=== PATIENT | female | born 1975 | race Caucasian/White ===

== ENCOUNTER 2018-09-19 20:32 | Emergency (ER) | payer OTHER ==
[~2018-09-19] VITALS: Ht 165.1 cm; Wt 56.7 kg
--- NOTE | 2018-09-19 20:57 | NUR ---
DR. HENNING AT BEDSIDE FOR MSE.
[2018-09-19] MEDS ORDERED: CEFTRIAXONE 1 G VIAL IM ONE (21:00)
[2018-09-19] MEDS ORDERED: SULFAMETH/TRIMETH 800/160 MG TABLET PO ONE (21:00)
[2018-09-19] MEDS ORDERED: SODIUM BICARBONATE 4.2 % (NEUT) 5 ML VIAL TP ONE (21:00)
[2018-09-19] MEDS ORDERED: LIDOCAINE HCL 2% 20 ML VIAL TP ONE (21:00)
[2018-09-19] MEDS ORDERED: LIDOCAINE HCL 1% 20 ML VIAL ONE (21:07)
[2018-09-19] MEDS ORDERED: SULFAMETH/TRIMETH 800/160 MG TABLET ONE (21:07)
[2018-09-19] MEDS ORDERED: CEFTRIAXONE 1 G VIAL ONE (21:07)
--- NOTE | 2018-09-19 21:45 | NUR ---
PATIENT HAD A SYNCOPAL EPISODE. DR. HENNING AT BEDSIDE. VSS
--- NOTE | 2018-09-19 22:30 | NUR ---
PATIENT STATES SHE FEELS A LOT BETTER. DR. HENNING AT BEDSIDE.
[2018-09-19 22:44] VITALS: BP 105/74
--- NOTE | 2018-09-19 22:44 | NUR ---
Patient discharged to home in stable conditon. Written and verbal after care instructions given. Patient verbalizes understanding of instructions. PATIENT LEFT WITH STABLE GAIT.
== END 2018-09-19 22:45 | disposition home or self-care (01) ==
LOC: ER 20:32
DX: L03.011 Cellulitis of right finger (principal); R55 Syncope and collapse
CPT/HCPCS: 10060; 96372; 99283; J0696; J3490 ×2; A4663

== ENCOUNTER 2018-10-29 19:02 | Emergency (ER) | payer OTHER ==
[~2018-10-29] VITALS: Ht 165.1 cm; Wt 56.7 kg
--- NOTE | 2018-10-29 19:48 | NUR ---
Patient ambulated using crutches with stable gait.. AAOx4. Speech is clear, speaks in complete sentences. No neuro deficits. Patient came in with c/o LLE pain in ankle s/p tripping accident 10/28/18 at 1730. No respiratory distress noted, no sob no cough. No cardiovascular distress, all pulses palpable. No GI/ distress. Patient in bed at lowest position, side rails up x2, call light within reach. Fall precautions implemented per protocol.
--- NOTE | 2018-10-29 20:00 | NUR ---
Female application programmer analyst, Peggy, accompanied female patient for pelvic/rectal exam.
--- NOTE | 2018-10-29 21:17 | NUR ---
Patient in bed at lowest position. NAD
--- NOTE | 2018-10-29 22:05 | NUR ---
Patient discharged to home in stable conditon. Written and verbal after care instructions given. Patient verbalizes understanding of instructions. Patient ambulated using crutches with stable gait.
--- NOTE | 2018-10-29 22:05 | NUR ---
Posterior short leg cast applied to LLE. CMS intact.
[2018-10-29 22:10] VITALS: BP 135/79
== END 2018-10-29 22:10 | disposition home or self-care (01) ==
LOC: ER 19:03
DX: L03.012 Cellulitis of left finger (principal); M79.672 Pain in left foot; L73.9 Follicular disorder, unspecified; X50.0XXA Overexertion from strenuous movement or load, initial encounter; Y93.89 Activity, other specified; Y92.89 Other specified places as the place of occurrence of the external cause; Y99.8 Other external cause status
CPT/HCPCS: 73630; 87081; 87110; 87210; A4663

== ENCOUNTER 2018-11-18 15:28 | Emergency (ER) | payer OTHER ==
[~2018-11-18] VITALS: Ht 165.1 cm; Wt 56.7 kg
--- NOTE | 2018-11-18 15:57 | NUR ---
PT A/OX4, PRESENTS TO THE ER C/O BILATERAL FLANK PAIN AND HEADACHE X 1 WEEK. PAIN IS NON-PROVOKED, ACHING IN QUALITY, DOES NOT RADIATE, 3/10, CONSTANT. PT PRESENTS AN UNLABELED MEDICATION BOTTLE CONTAINING WHITE POWDER AND STATES "IT'S ALLEDGELY MAGNESIUM" AND STATES HER FRIEND GAVE IT TO HER TO TAKE. PT REPORTS ONSET OF BILATERAL FLANK PAIN SINCE STARTING SELF-ADMINISTRATION OF THE WHITE POWDER. VSS. PT DENIES C/P, SOB, N/V/D, DIZZINESS.
[2018-11-18 16:10] LABS: *BILIRUBIN,URIN NEGATIVE (NEGATIVE); *CLARITY,URINE CLEAR (CLEAR); *COLOR,URINE LIGHT YELLOW (YELLOW); *KETONES,URINE NEGATIVE (NEGATIVE); *UROBILINOGEN,URINE 0.2 E.U./dl (NORMAL); NITRITE, URINE NEGATIVE (NEGATIVE); PH,URINE 7.5 (5.0-8.0); UGLUCOSE NEGATIVE (NEGATIVE)
[2018-11-18 16:11] LABS: *URINE HCG, QUAL NEGATIVE (NEGATIVE)
[2018-11-18] MEDS ORDERED: IV NORMAL SALINE 1000 ML BAG IV ONE (16:15)
[2018-11-18 16:17] LABS: *BLOOD, URINE TRACE (NEGATIVE)
[2018-11-18 16:18] LABS: LEUKOCYTE ESTERASE ,URINE NEGATIVE (NEGATIVE)
[2018-11-18 16:19] LABS: RBC,URINE 0-3 /HPF (0-3); SQUAMOUS EPITHELIAL CELL,UR FEW /HPF (NONE SEEN); WBC,URINE 0-3 /HPF (0-3)
[2018-11-18 16:23] LABS: BASOPHILS # (AUTO) 0.1 K/uL (0.0-8.0); BASOPHILS % (AUTO) 1.4 % (0.0-2.0); EOSINOPHILS # (AUTO) 0.1 K/uL (0.0-0.7); EOSINOPHILS % (AUTO) 2.6 % (0.0-7.0); HEMATOCRIT 34.6 % (31.2-41.9); HEMOGLOBIN 11.2 g/dL (10.9-14.3); LYMPHOCYTES # (AUTO) 1.7 K/uL (20.0-40.0); LYMPHOCYTES % (AUTO) 33.6 % (20.5-51.5); MEAN CORPUSCULAR HEMOGLOBIN 26.6 uug (24.7-32.8); MEAN CORPUSCULAR HGB CONC 32 g/dL (32.3-35.6); MEAN CORPUSCULAR VOLUME 82.3 fL (75.5-95.3); MONOCYTES # (AUTO) 0.4 K/uL (2.0-10.0); MONOCYTES % (AUTO) 7.9 % (0.0-11.0); NEUTROPHILS # (AUTO) 2.8 K/uL (1.8-8.9); NEUTROPHILS % (AUTO) 54.5 % (38.5-71.5); PLATELET COUNT (AUTO) 296 K/uL (179-408); WHITE BLOOD COUNT (AUTO) 5.1 K/uL (3.8-11.8)
[2018-11-18 16:29] LABS: *AMPHETAMINE, URINE NEGATIVE (NEGATIVE); *BARBITURATE, URINE NEGATIVE (NEGATIVE); *CANNABINOID, URINE NEGATIVE (NEGATIVE); *COCCAINE, URINE NEGATIVE (NEGATIVE); *OPIATE, URINE NEGATIVE (NEGATIVE); *PHENCYCLIDINE SCREEN,URINE NEGATIVE (NEGATIVE)
[2018-11-18 16:33] LABS: CREATININE 0.8 mg/dL (0.6-1.3); POTASSIUM 4.1 mmol/L (3.5-5.1)
[2018-11-18 16:38] LABS: BILIRUBIN,DIRECT 0.1 mg/dL (0.0-0.2); BILIRUBIN,TOTAL 0.1 mg/dL (0.2-1.0); TOTAL PROTEIN, SERUM 7.4 g/dL (6.4-8.2)
--- NOTE | 2018-11-18 17:14 | NUR ---
BRIDGER CARDENAS AT BEDSIDE FOR PT UPDATE.
--- NOTE | 2018-11-18 18:12 | NUR ---
Patient discharged to home in stable conditon. Written and verbal after care instructions given. Patient verbalizes understanding of instructions. ALL BELONGINGS W/ PT. PT SELF-AMBULATED W/O DIFFICULTY. 20G IV ACCESS IN LAC REMOVED PRIOR TO D/C - INNER CANNULA INTACT.
[2018-11-18 18:13] VITALS: BP 116/72
== END 2018-11-18 18:13 | disposition home or self-care (01) ==
LOC: ER 15:31
DX: Z00.00 Encounter for general adult medical examination without abnormal findings (principal); R10.9 Unspecified abdominal pain; R60.9 Edema, unspecified
CPT/HCPCS: 36415; 80307; 83690; 84703; 85025; A4663; J7030

== ENCOUNTER 2018-11-23 12:45 | Emergency (ER) | payer OTHER ==
[~2018-11-23] VITALS: Ht 165.1 cm; Wt 56.7 kg
--- NOTE | 2018-11-23 13:05 | NUR ---
BRIDGER CARDENAS AT BEDSIDE FOR MSE.
[2018-11-23] MEDS ORDERED: IV NORMAL SALINE 1000 ML BAG IV ONE (13:15)
--- NOTE | 2018-11-23 13:49 | NUR ---
Patient discharged to home in stable conditon. Written and verbal after care instructions given. Patient verbalizes understanding of instructions. PT D/C W/ PRESCRIPTION. ALL BELONGINGS W/ PT. PT SELF-AMBULATED W/O DIFFICULTY. 18G IV ACCESS IN L FOREARM REMOVED PRIOR TO D/C - INNER CANNULA INTACT.
[2018-11-23 13:50] VITALS: BP 114/63
== END 2018-11-23 13:51 | disposition home or self-care (01) ==
LOC: ER 12:45
DX: L01.00 Impetigo, unspecified (principal)
CPT/HCPCS: A4663; J7030

== ENCOUNTER 2018-12-12 21:42 | Emergency (ER) | payer OTHER ==
[~2018-12-12] VITALS: Ht 165.1 cm; Wt 54.4 kg
--- NOTE | 2018-12-12 22:18 | NUR ---
Patient discharged to home in stable conditon. Written and verbal after care instructions given. Patient verbalizes understanding of instructions. Ambulated from ER with stable gait. Patient refused to wait for d/c paperwork, perscription, and AVS. Refused to sign d/c paperwork
[2018-12-12 22:19] VITALS: BP 128/81
== END 2018-12-12 22:20 | disposition home or self-care (01) ==
LOC: ER 21:44
DX: L03.011 Cellulitis of right finger (principal); L60.1 Onycholysis
CPT/HCPCS: A4663

== ENCOUNTER 2018-12-17 20:09 | Emergency (ER) | payer OTHER ==
[~2018-12-17] VITALS: Ht 165.1 cm; Wt 54.4 kg
--- NOTE | 2018-12-17 21:27 | NUR ---
Patient eloped from facility. ER physician notified.
== END 2018-12-17 21:29 | disposition left against medical advice (07) ==
LOC: ER 20:10
DX: L03.011 Cellulitis of right finger (principal); L60.1 Onycholysis
CPT/HCPCS: A4663

== ENCOUNTER 2019-02-16 07:04 | Emergency (ER) | payer OTHER ==
[~2019-02-16] VITALS: Ht 165.1 cm; Wt 56.7 kg
--- NOTE | 2019-02-16 08:51 | NUR ---
Patient discharged to home in stable conditon. Written and verbal after care instructions given. Patient verbalizes understanding of instructions.
[2019-02-16 08:52] VITALS: BP 114/70
== END 2019-02-16 08:53 | disposition home or self-care (01) ==
LOC: ER 07:05
DX: J32.9 Chronic sinusitis, unspecified (principal)
CPT/HCPCS: 71045; A4663

== ENCOUNTER 2019-05-16 13:30 | Emergency (ER) | payer OTHER ==
[~2019-05-16] VITALS: Ht 165.1 cm; Wt 56.7 kg
--- NOTE | 2019-05-16 13:54 | NUR ---
PT IS IN ROOM #2A. DR LANCE EVALUATED THE PT.
[2019-05-16] MEDS ORDERED: IV NORMAL SALINE 1000 ML BAG IV ONE (14:00)
[2019-05-16 14:24] LABS: *BILIRUBIN,URIN NEGATIVE (NEGATIVE); *CLARITY,URINE CLEAR (CLEAR); *COLOR,URINE YELLOW (YELLOW); *KETONES,URINE NEGATIVE (NEGATIVE); *UROBILINOGEN,URINE 0.2 E.U./dl (NORMAL); LEUKOCYTE ESTERASE ,URINE NEGATIVE (NEGATIVE); NITRITE, URINE NEGATIVE (NEGATIVE); PH,URINE 5.5 (5.0-8.0); UGLUCOSE NEGATIVE (NEGATIVE)
[2019-05-16 14:27] LABS: BASOPHILS # (AUTO) 0.1 K/uL (0.0-8.0); BASOPHILS % (AUTO) 2.3 % (0.0-2.0); EOSINOPHILS # (AUTO) 0.1 K/uL (0.0-0.7); EOSINOPHILS % (AUTO) 1.4 % (0.0-7.0); HEMATOCRIT 36.1 % (31.2-41.9); HEMOGLOBIN 11.8 g/dL (10.9-14.3); LYMPHOCYTES # (AUTO) 1.6 K/uL (20.0-40.0); LYMPHOCYTES % (AUTO) 35.1 % (20.5-51.5); MEAN CORPUSCULAR HEMOGLOBIN 27.9 uug (24.7-32.8); MEAN CORPUSCULAR HGB CONC 33 g/dL (32.3-35.6); MEAN CORPUSCULAR VOLUME 85.2 fL (75.5-95.3); MONOCYTES # (AUTO) 0.2 K/uL (2.0-10.0); MONOCYTES % (AUTO) 5.6 % (0.0-11.0); NEUTROPHILS # (AUTO) 2.5 K/uL (1.8-8.9); NEUTROPHILS % (AUTO) 55.6 % (38.5-71.5); PLATELET COUNT (AUTO) 276 K/uL (179-408); RED BLOOD CELL COUNT(AUTO) 4.23 MIL/uL (3.63-4.92); WHITE BLOOD COUNT (AUTO) 4.4 K/uL (3.8-11.8)
[2019-05-16 14:40] LABS: *BLOOD, URINE TRACE (NEGATIVE)
[2019-05-16 14:40] LABS: ALANINE AMINOTRANSFERASE 8 U/L (14-59); ALKALINE PHOSPHATASE 58 U/L (50-136); ASPARTATE AMINOTRANSFERASE 15 U/L (15-37); BILIRUBIN,DIRECT 0.1 mg/dL (0.0-0.2); BILIRUBIN,TOTAL 0.3 mg/dL (0.2-1.0); CARBON DIOXIDE 26 mmol/L (21-32); CHLORIDE 106 mmol/L (98-107); CREATININE 0.8 mg/dL (0.6-1.3); GLUCOSE 91 mg/dL (74-106); LIPASE 152 U/L (73-393); POTASSIUM 3.8 mmol/L (3.5-5.1); TOTAL PROTEIN, SERUM 7.2 g/dL (6.4-8.2); UREA NITROGEN, BLOOD 15 mg/dL (7-18)
[2019-05-16 14:41] LABS: MUCUS,URINE FEW /LPF (0-FEW); SQUAMOUS EPITHELIAL CELL,UR FEW /HPF (NONE SEEN); WBC,URINE 0-3 /HPF (0-3)
[2019-05-16 14:43] LABS: ACETAMINOPHEN < 2.0 ug/mL (10-30)
[2019-05-16 15:01] LABS: ETHANOL < 3 MG/DL (0-0)
--- NOTE | 2019-05-16 15:54 | NUR ---
pt was d/c'd to home. d/c instructions given to the pt.
[2019-05-16 15:57] VITALS: BP 132/77
== END 2019-05-16 15:57 | disposition home or self-care (01) ==
LOC: ER 13:31
DX: R31.29 Other microscopic hematuria (principal); R51 Headache; R11.0 Nausea; F41.9 Anxiety disorder, unspecified; F32.9 Major depressive disorder, single episode, unspecified
CPT/HCPCS: 36415; 80048; 80076; 81000; 81001; 83690; 84702; 85025; 87086; 99283; G0480 ×2; G0481; A4663; J7030

== ENCOUNTER 2019-06-24 21:13 | Emergency (ER) | payer OTHER ==
[~2019-06-24] VITALS: Ht 165.1 cm; Wt 56.7 kg
--- NOTE | 2019-06-24 21:47 | NUR ---
Pt arrived at the ER with chief compalint of allergic reaction, c/o itchy rash all over the body x 2 hours, states she ate dinner with shellfish 30 min prior to allergic reaction, took benadryl otc @1999. Patient AAOX4. In no acute distress.
--- NOTE | 2019-06-24 21:48 | NUR ---
Dr. Archer on bedside for MSE.
[2019-06-24] MEDS ORDERED: methylPREDNISolone SOD SUCC 125 MG/2 ML VIAL ONE (21:58)
[2019-06-24] MEDS ORDERED: methylPREDNISolone SOD SUCC 125 MG/2 ML VIAL IV ONE (22:00)
--- NOTE | 2019-06-24 22:20 | NUR ---
Patient discharged to home in stable conditon. Written and verbal after care instructions given. Patient verbalizes understanding of instructions. Pt ambulated out of the ER with steady gait. All belongings with pt.
[2019-06-24 22:23] VITALS: BP 117/88
== END 2019-06-24 22:20 | disposition home or self-care (01) ==
LOC: ER 21:15
DX: T78.3XXA Angioneurotic edema, initial encounter (principal); L50.0 Allergic urticaria; F41.9 Anxiety disorder, unspecified; Z87.891 Personal history of nicotine dependence
CPT/HCPCS: 96374; 99283; J2930; A4663

== ENCOUNTER 2019-08-10 22:09 | Emergency (ER) | payer OTHER ==
[~2019-08-10] VITALS: Ht 165.1 cm; Wt 56.7 kg
[2019-08-10 23:26] LABS: *BILIRUBIN,URIN NEGATIVE (NEGATIVE); *BLOOD, URINE NEGATIVE (NEGATIVE); *CLARITY,URINE CLEAR (CLEAR); *COLOR,URINE YELLOW (YELLOW); *KETONES,URINE NEGATIVE (NEGATIVE); *UROBILINOGEN,URINE 0.2 E.U./dl (NORMAL); LEUKOCYTE ESTERASE ,URINE NEGATIVE (NEGATIVE); NITRITE, URINE NEGATIVE (NEGATIVE); UGLUCOSE NEGATIVE (NEGATIVE)
[2019-08-10 23:27] LABS: *URINE HCG, QUAL NEGATIVE (NEGATIVE)
--- NOTE | 2019-08-10 23:39 | NUR ---
Patient discharged to home in stable conditon. Written and verbal after care instructions given. Patient verbalizes understanding of instructions. Patient ambulating with steady gait
[2019-08-10 23:40] VITALS: BP 133/55
== END 2019-08-10 23:39 | disposition home or self-care (01) ==
LOC: ER 22:10
DX: R10.9 Unspecified abdominal pain (principal); F41.9 Anxiety disorder, unspecified; Z87.891 Personal history of nicotine dependence
CPT/HCPCS: 84703; A4663

== ENCOUNTER 2019-08-30 17:35 | Emergency (ER) | payer OTHER ==
[~2019-08-30] VITALS: Ht 165.1 cm; Wt 56.7 kg
[2019-08-30] MEDS ORDERED: VENL75TA4 PO (17:48)
[2019-08-30] MEDS ORDERED: VENL37.55 PO (17:48)
--- NOTE | 2019-08-30 18:04 | NUR ---
Patient discharged to home in stable conditon with brisk steady gait. Written and verbal after care instructions given. Patient verbalizes understanding of instructions.
== END 2019-08-30 18:05 | disposition home or self-care (01) ==
LOC: ER 17:35
DX: B00.2 Herpesviral gingivostomatitis and pharyngotonsillitis (principal); F41.9 Anxiety disorder, unspecified; Z87.891 Personal history of nicotine dependence; Z79.899 Other long term (current) drug therapy
CPT/HCPCS: A4663

== ENCOUNTER 2020-04-19 19:38 | Emergency (ER) | payer OTHER ==
[~2020-04-19] VITALS: Ht 165.1 cm; Wt 63.5 kg
[~2020-04-19 19:38] MED LIST: VENL37.55 PO; VENL75TA4 PO
[2020-04-19] MEDS ORDERED: ASPI-1165 PO (19:48)
--- NOTE | 2020-04-19 19:56 | NUR ---
PT IS IN ROOM #1B. DR HENNING EVALUATED THE PT.
--- NOTE | 2020-04-19 20:30 | NUR ---
PATIENT LEFT AFTER BEEN SEEN BY DOCTOR HENNING , REFUSES ANY OTHER TREATMENT , RISK FACTORS EXPLAINED , NO BLOOD WORK DONE , AND VERBALIZES UNDERSTANDING
[2020-04-19 22:47] VITALS: BP 137/94
== END 2020-04-19 20:00 | disposition home or self-care (01) ==
LOC: ER 19:38
DX: Z13.88 Encounter for screening for disorder due to exposure to contaminants (principal); F41.9 Anxiety disorder, unspecified; Z79.899 Other long term (current) drug therapy; Z79.82 Long term (current) use of aspirin; F17.201 Nicotine dependence, unspecified, in remission; R03.0 Elevated blood-pressure reading, without diagnosis of hypertension
CPT/HCPCS: A4663

== ENCOUNTER 2020-08-24 20:05 | Emergency (ER) | payer OTHER ==
[~2020-08-24] VITALS: Ht 165.1 cm; Wt 56.7 kg
[~2020-08-24 20:05] MED LIST changes: +ASPI-1165 PO
[2020-08-24 21:11] LABS: BASOPHILS # (AUTO) 0.1 K/uL (0.0-8.0); BASOPHILS % (AUTO) 1.5 % (0.0-2.0); EOSINOPHILS # (AUTO) 0.1 K/uL (0.0-0.7); EOSINOPHILS % (AUTO) 2.1 % (0.0-7.0); HEMATOCRIT 37.5 % (31.2-41.9); HEMOGLOBIN 12.5 g/dL (10.9-14.3); LYMPHOCYTES # (AUTO) 1.6 K/uL (20.0-40.0); LYMPHOCYTES % (AUTO) 29.2 % (20.5-51.5); MEAN CORPUSCULAR HEMOGLOBIN 27.6 uug (24.7-32.8); MEAN CORPUSCULAR HGB CONC 33 g/dL (32.3-35.6); MONOCYTES # (AUTO) 0.4 K/uL (2.0-10.0); MONOCYTES % (AUTO) 6.9 % (0.0-11.0); NEUTROPHILS # (AUTO) 3.4 K/uL (1.8-8.9); NEUTROPHILS % (AUTO) 60.3 % (38.5-71.5); PLATELET COUNT (AUTO) 292 K/uL (179-408); RED BLOOD CELL COUNT(AUTO) 4.51 MIL/uL (3.63-4.92); WHITE BLOOD COUNT (AUTO) 5.6 K/uL (3.8-11.8)
--- NOTE | 2020-08-24 21:12 | NUR ---
LABS DRAWN/SENT, COVID SPECIM ,/URINE SENT, CXR DONE.
[2020-08-24 21:15] LABS: *BILIRUBIN,URIN NEGATIVE (NEGATIVE); *BLOOD, URINE NEGATIVE (NEGATIVE); *CLARITY,URINE CLEAR (CLEAR); *COLOR,URINE PINK (YELLOW); *KETONES,URINE 1+ (NEGATIVE); *UROBILINOGEN,URINE 0.2 E.U./dl (NORMAL); LEUKOCYTE ESTERASE ,URINE NEGATIVE (NEGATIVE); NITRITE, URINE NEGATIVE (NEGATIVE); PH,URINE 5.5 (5.0-8.0); UGLUCOSE NEGATIVE (NEGATIVE)
[2020-08-24 21:20] LABS: CREATININE 0.9 mg/dL (0.6-1.3); POTASSIUM 3.9 mmol/L (3.5-5.1)
[2020-08-24] MEDS ORDERED: CIPROFLOXACIN HCL 250 MG TABLET PO ONE (21:45)
--- NOTE | 2020-08-24 21:53 | NUR ---
MEDICATION ADMINISTERED, PT D/C'D HOME WITH ACI/RX 1, COPIES OF ALL TESTS. PT AMBULATED W/O DIFF/TOOK ALL BELONGINGS.
[2020-08-24 21:55] VITALS: BP 115/72
[2020-08-24] MEDS ORDERED: CIPROFLOXACIN HCL 250 MG TABLET ONE (21:56)
== END 2020-08-24 21:55 | disposition home or self-care (01) ==
LOC: ER 20:08
DX: K52.9 Noninfective gastroenteritis and colitis, unspecified (principal); R50.9 Fever, unspecified; R09.81 Nasal congestion; R05 Cough; Z20.828 Contact with and (suspected) exposure to other viral communicable diseases; F41.9 Anxiety disorder, unspecified; F32.9 Major depressive disorder, single episode, unspecified; Z79.899 Other long term (current) drug therapy
CPT/HCPCS: 36415; 71045; 85025; A4663

== ENCOUNTER 2020-11-04 07:01 | Emergency (ER) | payer OTHER ==
[~2020-11-04] VITALS: Ht 165.1 cm; Wt 56.7 kg
--- NOTE | 2020-11-04 07:25 | NUR ---
Dr Workman at the bedside for MSE.
[2020-11-04] MEDS ORDERED: ONDANSETRON ODT 4 MG TAB.RAPDIS ONE ×2 (07:44→07:53)
[2020-11-04] MEDS ORDERED: AZITHROMYCIN 250 MG TABLET PO ONE (07:45)
[2020-11-04] MEDS ORDERED: ONDANSETRON ODT 4 MG TAB.RAPDIS SL ONE (07:45)
[2020-11-04] MEDS ORDERED: CEFTRIAXONE 500 MG VIAL IM ONE (07:45)
[2020-11-04] MEDS ORDERED: LIDOCAINE HCL 1% 20 ML VIAL ONE (07:52)
[2020-11-04] MEDS ORDERED: AZITHROMYCIN 250 MG TABLET ONE (07:52)
[2020-11-04 07:53] LABS: *BILIRUBIN,URIN NEGATIVE (NEGATIVE); *CLARITY,URINE CLEAR (CLEAR); *COLOR,URINE YELLOW (YELLOW); *KETONES,URINE NEGATIVE (NEGATIVE); *UROBILINOGEN,URINE 0.2 E.U./dl (NORMAL); LEUKOCYTE ESTERASE ,URINE NEGATIVE (NEGATIVE); NITRITE, URINE NEGATIVE (NEGATIVE); UGLUCOSE NEGATIVE (NEGATIVE)
[2020-11-04] MEDS ORDERED: CEFTRIAXONE 500 MG VIAL ONE (07:53)
[2020-11-04 07:56] LABS: *URINE HCG, QUAL NEGATIVE (NEGATIVE)
[2020-11-04 07:57] LABS: *BLOOD, URINE TRACE (NEGATIVE)
[2020-11-04] MEDS ORDERED: ONDA4TAB11 PO (08:11)
--- NOTE | 2020-11-04 08:30 | NUR ---
Pt able to tolorate PO intake.
[2020-11-04 08:35] VITALS: BP 116/72
--- NOTE | 2020-11-04 08:36 | NUR ---
Patient discharged to home in stable condition. Written and verbal after care instructions given. Patient verbalizes understanding of instructions. Stressed follow up or return to ER for worsening s/s.
[2020-11-04 11:09] LABS: RBC,URINE 0-3 /HPF (0-3); WBC,URINE 0-3 /HPF (0-3)
[2020-11-04 11:10] LABS: BACTERIA,URINE NONE SEEN /HPF (NONE SEEN); SQUAMOUS EPITHELIAL CELL,UR FEW /HPF (NONE SEEN)
[2020-11-06 03:06] LABS: *GC NAA Negative (Negative); *TRIC.VAG. NAA Negative (Negative)
== END 2020-11-04 08:36 | disposition home or self-care (01) ==
LOC: ER 07:01
DX: R11.2 Nausea with vomiting, unspecified (principal); R19.7 Diarrhea, unspecified; Z20.2 Contact with and (suspected) exposure to infections with a predominantly sexual mode of transmission; F41.9 Anxiety disorder, unspecified; F32.9 Major depressive disorder, single episode, unspecified
CPT/HCPCS: 81001; 84703; 87491; 96372; 99283; J0696; J3490; A4663; Q0144; Q0162

== ENCOUNTER 2020-11-18 02:37 | Emergency (ER) | payer OTHER ==
[~2020-11-18] VITALS: Ht 165.1 cm; Wt 56.7 kg
[~2020-11-18 02:37] MED LIST changes: +ONDA4TAB11 PO
--- NOTE | 2020-11-18 02:40 | NUR ---
Patient ambulated with steady gait. A/Ox4, speech is clear. Patient came for c/o "not feeling well", and numbness and tingling on left side of her body. NIHSS was assessed and value = 0. Patient had equal strength, both upper and lower extremities. Facial symmetry, with tongue midline. No respiratory distress noted. No cardiovascular distress noted, all pulses palpable, no palpitations denies any cp. Denies any n/v/d.
[2020-11-18 03:12] LABS: BASOPHILS # (AUTO) 0.1 K/uL (0.0-8.0); BASOPHILS % (AUTO) 1.1 % (0.0-2.0); EOSINOPHILS # (AUTO) 0.1 K/uL (0.0-0.7); EOSINOPHILS % (AUTO) 2.3 % (0.0-7.0); HEMATOCRIT 39.7 % (31.2-41.9); LYMPHOCYTES # (AUTO) 2.3 K/uL (20.0-40.0); LYMPHOCYTES % (AUTO) 40.2 % (20.5-51.5); MEAN CORPUSCULAR HEMOGLOBIN 27.4 uug (24.7-32.8); MEAN CORPUSCULAR HGB CONC 33 g/dL (32.3-35.6); MEAN CORPUSCULAR VOLUME 83.9 fL (75.5-95.3); MONOCYTES # (AUTO) 0.5 K/uL (2.0-10.0); MONOCYTES % (AUTO) 9.3 % (0.0-11.0); NEUTROPHILS # (AUTO) 2.7 K/uL (1.8-8.9); NEUTROPHILS % (AUTO) 47.1 % (38.5-71.5); PLATELET COUNT (AUTO) 301 K/uL (179-408); RED BLOOD CELL COUNT(AUTO) 4.74 MIL/uL (3.63-4.92); WHITE BLOOD COUNT (AUTO) 5.8 K/uL (3.8-11.8)
--- NOTE | 2020-11-18 03:15 | NUR ---
Pt back to ER from CT
[2020-11-18 03:20] LABS: POTASSIUM 3.5 mmol/L (3.5-5.1)
--- NOTE | 2020-11-18 03:28 | NUR ---
Gina vick in [facility] - 11/18/[address] at [address] Archer speaking with teleneurology Dr. Agustin Coffman.
--- NOTE | 2020-11-18 03:28 | NUR ---
Dr. Archer speaking with Dr. Concepcion teleneurology.
--- NOTE | 2020-11-18 03:30 | NUR ---
Code Stroke Cleared by Dr. Archer.
--- NOTE | 2020-11-18 03:40 | NUR ---
IV removed. Catheter intact and site benign. Pressure and 4x4 gauze applied to site. No bleeding noted.Patient discharged to home in stable condition. Written and verbal after care instructions given. Patient verbalizes understanding of instructions. Stressed follow up or return to ER for worsening s/s. Patient is able to ambulate with steady gait. A/Ox4, denies any SAGE, n/v, or any weakness. Patient is cleared to be d/c home and to observe symptoms and f/u with primary doctor.
[2020-11-18 04:01] VITALS: BP 138/95
== END 2020-11-18 04:01 | disposition home or self-care (01) ==
LOC: ER 02:43
DX: G45.9 Transient cerebral ischemic attack, unspecified (principal); Z98.82 Breast implant status; F32.9 Major depressive disorder, single episode, unspecified; Z79.899 Other long term (current) drug therapy
CPT/HCPCS: 36415; 70030-TC; 70450; 71045; 85025; 85730; 93005; A4663

== ENCOUNTER 2020-11-26 11:19 | Emergency (ER) | payer OTHER ==
[~2020-11-26] VITALS: Ht 165.1 cm; Wt 56.7 kg
--- NOTE | 2020-11-26 12:00 | NUR ---
Neurologist nilton done via telemedicine.
--- NOTE | 2020-11-26 12:08 | NUR ---
Patient is ambulatory with steady gait. She walked into the ER and walked to bed 2. Placed on a monitor. Code stroke called by . 12 lead EKG done. IV placed. CT was done quickly. Patient states she cannot have contrast dye. I asked why, what happens when you get dye and she kept saying "I cant have it" without answering why she cant have it.
[2020-11-26] MEDS ORDERED: methylPREDNISolone SOD SUCC 125 MG/2 ML VIAL IV ONE (12:15)
[2020-11-26] MEDS ORDERED: diphenhydrAMINE 50 MG/1 ML VIAL IM ONE (12:15)
[2020-11-26] MEDS ORDERED: diphenhydrAMINE 50 MG/1 ML VIAL ONE (12:21)
[2020-11-26] MEDS ORDERED: methylPREDNISolone SOD SUCC 125 MG/2 ML VIAL ONE (12:21)
[2020-11-26 12:23] LABS: BASOPHILS # (AUTO) 0.1 K/uL (0.0-8.0); BASOPHILS % (AUTO) 1.1 % (0.0-2.0); EOSINOPHILS # (AUTO) 0.1 K/uL (0.0-0.7); EOSINOPHILS % (AUTO) 1.3 % (0.0-7.0); HEMATOCRIT 38.3 % (31.2-41.9); HEMOGLOBIN 12.5 g/dL (10.9-14.3); LYMPHOCYTES # (AUTO) 1.6 K/uL (20.0-40.0); LYMPHOCYTES % (AUTO) 24.1 % (20.5-51.5); MEAN CORPUSCULAR HEMOGLOBIN 27.2 uug (24.7-32.8); MEAN CORPUSCULAR HGB CONC 33 g/dL (32.3-35.6); MEAN CORPUSCULAR VOLUME 83.5 fL (75.5-95.3); MONOCYTES # (AUTO) 0.3 K/uL (2.0-10.0); MONOCYTES % (AUTO) 5.1 % (0.0-11.0); NEUTROPHILS # (AUTO) 4.4 K/uL (1.8-8.9); NEUTROPHILS % (AUTO) 68.4 % (38.5-71.5); PLATELET COUNT (AUTO) 287 K/uL (179-408); RED BLOOD CELL COUNT(AUTO) 4.59 MIL/uL (3.63-4.92); WHITE BLOOD COUNT (AUTO) 6.4 K/uL (3.8-11.8)
[2020-11-26 12:25] LABS: CREATININE 0.9 mg/dL (0.6-1.3); POTASSIUM 3.7 mmol/L (3.5-5.1)
[2020-11-26] MEDS ORDERED: SWABABLE VALVE TRANSFER SET EA MC ONE (12:28)
[2020-11-26] MEDS ORDERED: IV NORMAL SALINE 250 ML IV ONE (12:29)
[2020-11-26] MEDS ORDERED: IOHEXOL 350 100 ML INFUS..BTL ONE (12:29)
[2020-11-26 12:30] LABS: BILIRUBIN,DIRECT 0.1 mg/dL (0.0-0.2); BILIRUBIN,TOTAL 0.4 mg/dL (0.2-1.0); TOTAL PROTEIN, SERUM 7.3 g/dL (6.4-8.2)
[2020-11-26] MEDS ORDERED: ONDANSETRON 4 MG/2 ML VIAL IV ONE (12:30)
[2020-11-26] MEDS ORDERED: IV NORMAL SALINE 1000 ML BAG IV ONE (12:30)
[2020-11-26] MEDS ORDERED: ONDANSETRON 4 MG/2 ML VIAL ONE (12:35)
--- NOTE | 2020-11-26 12:54 | NUR ---
covid swab done. patient is awake and alert with no new complaints
--- NOTE | 2020-11-26 13:05 | NUR ---
Patient pulled her IV out of her arm (catheter intact on the floor) and ran out of the ER without saying anything. I tried to go after her but she ran out so fast, I couldnt see her outside. MD stoner
== END 2020-11-26 13:26 | disposition left against medical advice (07) ==
LOC: ER 11:19
DX: R51.9 Headache, unspecified (principal); R29.810 Facial weakness; R20.0 Anesthesia of skin; G83.21 Monoplegia of upper limb affecting right dominant side; F32.9 Major depressive disorder, single episode, unspecified; R29.707 NIHSS score 7; Z20.822 Contact with and (suspected) exposure to COVID-19; Z79.899 Other long term (current) drug therapy
CPT/HCPCS: 36415; 70450; 71045; 80048; 80061; 80076; 80307; 82962; 84484; 85025; 85730; 86850; 86900; 86901; 87426; 93005; 96361; 96374; 96375; 99285; J1200; J2405; J2930; 70030-TC; J7050; Q9967

== ENCOUNTER 2020-11-26 13:43 | Inpatient (IN) | payer OTHER ==
[~2020-11-26] VITALS: Ht 165.1 cm; Wt 56.7 kg
--- NOTE | 2020-11-26 14:25 | NUR ---
Patient elooped from ER at 1305 today. She pulled her IV out and ran very quickly ou fo the ER. She then came back. I asked her why she left and she did not answer me after several asks. She is sitting up drinking water. She ambulates with steady gait. Dr Schilling wants her to have a CTA of her head but patient is refusing. Doctor spoke to her too and she still refuses. She is aware of pending admission
[2020-11-26] MEDS ORDERED: IV NORMAL SALINE 250 ML IV ONE (14:46)
[2020-11-26] MEDS ORDERED: SWABABLE VALVE TRANSFER SET EA MC ONE (14:46)
--- NOTE | 2020-11-26 15:44 | NUR ---
report given janak nurse. 20g IV placed in left arm. Patient is aware of pending admission to hospital
[2020-11-26 15:55] VITALS: BP 122/83
--- NOTE | 2020-11-26 16:00 | NUR ---
Patient received in a wheelchair, No sign of distress noted. Patient is on room air. IV in in the right forearm 20 gauge. Belongings list completed and signed. Initial vitals taken. Safety measures in place. Will complete admission and monitor.
[2020-11-26] MEDS ORDERED: ACETAMINOPHEN 325 MG TABLET PO PRN (17:30)
[2020-11-26] MEDS ORDERED: ONDANSETRON 4 MG/2 ML VIAL IV PRN (17:30)
[2020-11-26] MEDS ORDERED: ZOLPIDEM 5 MG TABLET PO PRN (17:30)
[2020-11-26] MEDS ORDERED: HYDROCODONE/APAP 5-325MG TABLET PO PRN (17:30)
[2020-11-26] MEDS: ASPIRIN 325 MG TABLET PO SCH (18:13)
[2020-11-26 20:06] VITALS: BP 97/57
[2020-11-26] MEDS ORDERED: VENLAFAXINE 25 MG TABLET PO SCH (21:00)
--- NOTE | 2020-11-26 21:03 | NUR ---
TEXTED DR. PICKERING FOR MRI APPROVAL.
--- NOTE | 2020-11-26 21:10 | NUR ---
Patient alert and able to make needs known.On RA. Denies SOB.No c/o pain at this time.Ambulates to bathroom. Iv on FA 20g patent and intact.Patient refused to take her medication .Explained risk and benefits.Patient still refused. Stated she took her effexor already this morning and she usually takes it in the morning. notified with new order to d/c it ,order noted and carried out. Patient made aware.Call light with in reach. Will continue to monitor.
--- NOTE | 2020-11-26 23:44 | NUR ---
Patient awake and went to nursing station to talk to her nurse. Patient insisting to give her Effexor medication after it was D/C 'd.Md made aware with new order given ,noted and carried out.Effexor given.No acute distress noted. Denies pain. Will continue to monitor.
[2020-11-27] MEDS ORDERED: VENLAFAXINE 25 MG TABLET PO SCH
[2020-11-27 00:03] VITALS: BP 124/80
[2020-11-27 04:12] VITALS: BP 120/89
[2020-11-27 06:38] LABS: BASOPHILS % (AUTO) 0.3 % (0.0-2.0); HEMATOCRIT 39.7 % (31.2-41.9); HEMOGLOBIN 12.6 g/dL (10.9-14.3); LYMPHOCYTES # (AUTO) 1.5 K/uL (20.0-40.0); LYMPHOCYTES % (AUTO) 13.7 % (20.5-51.5); MEAN CORPUSCULAR HEMOGLOBIN 26.8 uug (24.7-32.8); MEAN CORPUSCULAR HGB CONC 32 g/dL (32.3-35.6); MEAN CORPUSCULAR VOLUME 84.6 fL (75.5-95.3); MONOCYTES # (AUTO) 0.5 K/uL (2.0-10.0); NEUTROPHILS # (AUTO) 8.6 K/uL (1.8-8.9); PLATELET COUNT (AUTO) 315 K/uL (179-408); RED BLOOD CELL COUNT(AUTO) 4.69 MIL/uL (3.63-4.92); WHITE BLOOD COUNT (AUTO) 10.7 K/uL (3.8-11.8)
--- NOTE | 2020-11-27 06:40 | NUR ---
Patient slept well.No acute distress noted through out the shift.On RA,Will endorse to oncoming shift.
[2020-11-27 06:48] LABS: CREATININE 1.1 mg/dL (0.6-1.3); MAGNESIUM 2.1 mg/dL (1.8-2.4); PHOSPHOROUS 3.1 mg/dL (2.5-4.9); POTASSIUM 3.6 mmol/L (3.5-5.1)
[2020-11-27 06:59] LABS: THYROID STIMULATING HORMONE 2.07 mIU/mL (0.358-3.740)
[2020-11-27] MEDS ORDERED: PANTOPRAZOLE SODIUM 40 MG TABLET.DR PO SCH (07:00)
--- NOTE | 2020-11-27 08:00 | NUR ---
pt requested that her emergency contact be updated to her brother, Vidal Segovia, . Admissions has been notified.
[2020-11-27] MEDS: ASPIRIN 325 MG TABLET PO SCH (08:08)
[2020-11-27] MEDS ORDERED: POTASSIUM CHLORIDE 20 MEQ POWDER PACKET PO ONE (09:00)
[2020-11-27] MEDS ORDERED: ASPIRIN 81 MG TAB.CHEW PO SCH (09:00)
[2020-11-27] MEDS ORDERED: LORAZEPAM 1 MG TABLET PO ONE (11:00)
[2020-11-27 11:43] VITALS: BP 128/86
[2020-11-27 11:49] LABS: *URINE HCG, QUAL NEGATIVE (NEGATIVE)
[2020-11-27 11:59] LABS: *AMPHETAMINE, URINE NEGATIVE (NEGATIVE); *CANNABINOID, URINE NEGATIVE (NEGATIVE); *COCCAINE, URINE NEGATIVE (NEGATIVE); *OPIATE, URINE NEGATIVE (NEGATIVE); *PHENCYCLIDINE SCREEN,URINE NEGATIVE (NEGATIVE)
--- NOTE | 2020-11-27 12:00 | NUR ---
pt left via ambulance to [facility] to get MRI wo contract of the brain. All paperwork completed.
--- NOTE | 2020-11-27 12:44 | NUR ---
Anal from [facility] called to report that pt is refusing to get MRI done. Pt told [facility] staff that she had a pacemaker but in xrays and upon assessment, pt does not have any pacemaker. Pt said "she thought she was going for a CT". pt being transferred back to [place].
--- NOTE | 2020-11-27 13:15 | NUR ---
PATIENT REFUSED MRI. NURSE IS AWARE.
--- NOTE | 2020-11-27 15:50 | NUR ---
Social Service consultation: [employer]ulcan[employer] Head consultation requested for TIA and possible depression. Patient is a 45 year old female who came to the ED on 11/26/20 complaining of headache and weakness. Per ED records, patient eloped from the ED while in the process of getting ready to be admitted to the hospital. Later, patient returned back to the ED and this time was admitted to the hospital. SW attempted to meet with the patient today. Patient was in bed, awake, and agreed to meet with this SW for a few minutes, although stated that she wanted to sleep. Patient states that she alternates living with 2 different friends, [place] [address] [facility], and the other [place] [address] [facility]. Patient states that upon discharge, she will be going to her friends house in [place] and that this friend will be picking her up from the hospital. Patient stated that her emergency contact is her brother Vidal Segovia, . SW attempted to explore patient's psychosocial needs and administer the PHQ-9, however patient refused to engage in much conversation, and kept saying "can you come back later". SW acknowledged patient's wishes, and concluded this interview. Per patient's medical records, patient has refused some of the offered interventions, medications, and procedures. At this time, SW will remain available and follow-up with the patient, as needed.
[2020-11-27 16:00] VITALS: BP 106/66
--- NOTE | 2020-11-27 18:42 | NUR ---
pt discharged home, with all belongings and paperwork. Pt vitals stable, ambulatory, pt cooperative and in pleasant mood. all medications given as ordered, tele monitor removed prior to discharge, ID band and IV removed. Pt on room air, no signs of distress noted, no reports of pain. pt left home with friend in private car.
[2020-11-27] MEDS ORDERED: ATORVASTATIN 20 MG TABLET PO SCH (21:00)
[2020-11-28] MEDS ORDERED: ASPIRIN 81 MG TAB.CHEW PO SCH (09:00)
== END 2020-11-27 18:44 | disposition home or self-care (01) | DRG 755 ==
LOC: ER 13:43 → TELE3 15:39
PROVIDERS: ADMIT Internal Medicine; ATTEND Internal Medicine
DX: F45.0 Somatization disorder (principal); E78.5 Hyperlipidemia, unspecified; F32.9 Major depressive disorder, single episode, unspecified; R20.0 Anesthesia of skin; R51.9 Headache, unspecified; F99 Mental disorder, not otherwise specified
CPT/HCPCS: 36415; 83735; 84100; 84443; 84703; 85025; 93307; A4663; G0378; J7050

== ENCOUNTER 2020-11-30 14:06 | Emergency (ER) | payer OTHER ==
[~2020-11-30] VITALS: Ht 165.1 cm; Wt 56.7 kg
--- NOTE | 2020-11-30 14:06 | NUR ---
Patient is alert & awake, expressing ,"I have anaphylactic reaction to COVID vaccine." No hives seen, no rashes seen or wheezing heard, respiration:easy.
--- NOTE | 2020-11-30 14:13 | NUR ---
Patient is resting comfortably on gurney with eyes close, respiration:easy, intermittently anxious when awake, skin warm & dry.
--- NOTE | 2020-11-30 14:15 | NUR ---
MD@bedside, medical screening exam in progress
[2020-11-30] MEDS ORDERED: NICOTINE 7 MG/24HR PATCH TD SCH (14:30)
[2020-11-30 14:44] VITALS: BP 130/73
== END 2020-11-30 14:45 | disposition home or self-care (01) ==
LOC: ER 14:07
DX: F17.203 Nicotine dependence unspecified, with withdrawal (principal); Z86.73 Personal history of transient ischemic attack (TIA), and cerebral infarction without residual deficits; F41.9 Anxiety disorder, unspecified
CPT/HCPCS: A4663; A9150

== ENCOUNTER 2020-12-11 00:21 | Emergency (ER) | payer OTHER ==
[~2020-12-11] VITALS: Ht 165.1 cm; Wt 56.7 kg
[2020-12-11 01:40] VITALS: BP 127/66
--- NOTE | 2020-12-11 01:40 | NUR ---
Patient discharged to home in stable condition with family member. Written and verbal after care instructions given. Patient verbalizes understanding of instructions. Stressed follow up or return to ER for worsening s/s.
== END 2020-12-11 01:35 | disposition home or self-care (01) ==
LOC: ER 00:23
DX: R05 Cough (principal); Z86.73 Personal history of transient ischemic attack (TIA), and cerebral infarction without residual deficits; Z98.82 Breast implant status; F32.9 Major depressive disorder, single episode, unspecified; Z79.899 Other long term (current) drug therapy; G43.909 Migraine, unspecified, not intractable, without status migrainosus
CPT/HCPCS: 71045; A4663

== ENCOUNTER 2020-12-12 17:23 | Emergency (ER) | payer OTHER ==
[~2020-12-12] VITALS: Ht 165.1 cm; Wt 56.7 kg
--- NOTE | 2020-12-12 17:30 | NUR ---
MD at bedside at this time.
--- NOTE | 2020-12-12 17:38 | NUR ---
Patient discharged to home in stable condition. Written and verbal after care instructions given. Patient verbalizes understanding of instructions. Stressed follow up or return to ER for worsening s/s. Pt left ER w/ steady gait.
[2020-12-12 17:40] VITALS: BP 120/79
== END 2020-12-12 17:41 | disposition home or self-care (01) ==
LOC: ER 17:24
DX: Z13.9 Encounter for screening, unspecified (principal); F32.9 Major depressive disorder, single episode, unspecified; Z79.899 Other long term (current) drug therapy; G43.909 Migraine, unspecified, not intractable, without status migrainosus; Z86.73 Personal history of transient ischemic attack (TIA), and cerebral infarction without residual deficits
CPT/HCPCS: A4663

== ENCOUNTER 2020-12-20 17:10 | Emergency (ER) | payer OTHER ==
[~2020-12-20] VITALS: Ht 165.1 cm; Wt 61.2 kg
[2020-12-20] MEDS ORDERED: ASPIRIN 81 MG TAB.CHEW PO ONE (17:30)
[2020-12-20 17:43] LABS: BASOPHILS # (AUTO) 0.1 K/uL (0.0-8.0); BASOPHILS % (AUTO) 0.9 % (0.0-2.0); EOSINOPHILS # (AUTO) 0.1 K/uL (0.0-0.7); EOSINOPHILS % (AUTO) 1.9 % (0.0-7.0); HEMATOCRIT 35.9 % (31.2-41.9); HEMOGLOBIN 11.8 g/dL (10.9-14.3); LYMPHOCYTES # (AUTO) 1.2 K/uL (20.0-40.0); LYMPHOCYTES % (AUTO) 22.2 % (20.5-51.5); MEAN CORPUSCULAR HEMOGLOBIN 27.3 uug (24.7-32.8); MEAN CORPUSCULAR HGB CONC 33 g/dL (32.3-35.6); MEAN CORPUSCULAR VOLUME 83.3 fL (75.5-95.3); MONOCYTES # (AUTO) 0.3 K/uL (2.0-10.0); MONOCYTES % (AUTO) 5.2 % (0.0-11.0); NEUTROPHILS # (AUTO) 3.9 K/uL (1.8-8.9); NEUTROPHILS % (AUTO) 69.8 % (38.5-71.5); PLATELET COUNT (AUTO) 276 K/uL (179-408); RED BLOOD CELL COUNT(AUTO) 4.32 MIL/uL (3.63-4.92); WHITE BLOOD COUNT (AUTO) 5.6 K/uL (3.8-11.8)
[2020-12-20 17:46] LABS: CREATININE 1.1 mg/dL (0.6-1.3); POTASSIUM 3.6 mmol/L (3.5-5.1)
[2020-12-20] MEDS ORDERED: ASPIRIN 81 MG TAB.CHEW ONE (17:49)
[2020-12-20 17:58] LABS: BILIRUBIN,DIRECT 0.1 mg/dL (0.0-0.2); BILIRUBIN,TOTAL 0.3 mg/dL (0.2-1.0); TOTAL PROTEIN, SERUM 6.8 g/dL (6.4-8.2)
[2020-12-20 21:45] VITALS: BP 122/74
--- NOTE | 2020-12-20 21:46 | NUR ---
Patient discharged to home in stable condition. Written and verbal after care instructions given. Patient verbalizes understanding of instructions. Stressed follow up or return to ER for worsening s/s. All belongings with patient. VSS. Stable gait.
== END 2020-12-20 21:46 | disposition home or self-care (01) ==
LOC: ER 17:10
DX: T50.991A Poisoning by other drugs, medicaments and biological substances, accidental (unintentional), initial encounter (principal); R07.2 Precordial pain; Y92.89 Other specified places as the place of occurrence of the external cause; Z87.891 Personal history of nicotine dependence; Z82.49 Family history of ischemic heart disease and other diseases of the circulatory system; R94.31 Abnormal electrocardiogram [ECG] [EKG]; Z86.73 Personal history of transient ischemic attack (TIA), and cerebral infarction without residual deficits; F32.9 Major depressive disorder, single episode, unspecified; F41.9 Anxiety disorder, unspecified; Z79.899 Other long term (current) drug therapy; Z98.82 Breast implant status
CPT/HCPCS: 36415; 70030-TC; 71045; 85025; 93005; A4663

== ENCOUNTER 2020-12-29 06:24 | Emergency (ER) | payer OTHER ==
[~2020-12-29] VITALS: Ht 165.1 cm; Wt 61.2 kg
--- NOTE | 2020-12-29 06:50 | NUR ---
Patient angry and uncooperative with medical interventions, unable to do EKG.
[2020-12-29 07:07] VITALS: BP 138/96
--- NOTE | 2020-12-29 07:07 | NUR ---
Patient angrily stormed off and eloped from the ER. Swearing at medical staff before her departure. Addendum: 12/29/20 at 0707 by ANGEL Patient eloped angrily with a steady gait, well-balanced, with a sense of purpose.
== END 2020-12-29 07:07 | disposition left against medical advice (07) ==
LOC: ER 06:27
DX: R42 Dizziness and giddiness (principal); Z86.73 Personal history of transient ischemic attack (TIA), and cerebral infarction without residual deficits; F32.9 Major depressive disorder, single episode, unspecified; F41.9 Anxiety disorder, unspecified; Z79.899 Other long term (current) drug therapy; F17.200 Nicotine dependence, unspecified, uncomplicated; Z53.20 Procedure and treatment not carried out because of patient's decision for unspecified reasons
CPT/HCPCS: 93005; A4663

== ENCOUNTER 2020-12-30 22:12 | Emergency (ER) | payer OTHER ==
[~2020-12-30] VITALS: Ht 165.1 cm; Wt 54.4 kg
--- NOTE | 2020-12-30 23:21 | NUR ---
Patient lied, stating she was the patient I was calling for in the waiting room to triage. Was reluctant to show her ID card upon triage, stating she wanted to be seen quicker.
--- NOTE | 2020-12-31 01:22 | NUR ---
Patient placed in hallway bed, pending MD TOVAR.
--- NOTE | 2020-12-31 01:34 | NUR ---
Patient resting on hospital bed, no acute distress noted at this time.
--- NOTE | 2020-12-31 02:26 | NUR ---
MD Alford at bedside to do MSE.
--- NOTE | 2020-12-31 02:30 | NUR ---
Patient was given a urine cup to obtain sample. Patient refused to use bathroom in the ER but instead went to ER waiting room to use restroom. Patient was seen by staff member leaving ER.
--- NOTE | 2020-12-31 02:53 | NUR ---
Patient eloped from facility. ER physician notified.
== END 2020-12-31 02:53 | disposition left against medical advice (07) ==
LOC: ER 22:12
DX: R68.89 Other general symptoms and signs (principal); Z53.20 Procedure and treatment not carried out because of patient's decision for unspecified reasons; Z86.73 Personal history of transient ischemic attack (TIA), and cerebral infarction without residual deficits; F32.9 Major depressive disorder, single episode, unspecified; Z79.899 Other long term (current) drug therapy
CPT/HCPCS: A4663